=== PATIENT | female | born 1965 | race Caucasian/White ===

== ENCOUNTER → 2018-11-16 | Outpatient (CLI) | payer BC ==
[2018-11-16 15:30] VITALS: BP 166/92; PULSE 77; TEMP 97.3; BMI 33.2
--- NOTE | 2018-11-16 17:04 | P.HPOB ---
History of Present Illness H&P Date: 11/16/18 Chief Complaint: The patient is here for her routine gynecologic exam and mammogram. This is a 52-year-old with an LMP of 2014. The patient is here to establish with this office. She is status post total laparoscopic hysterectomy with the right salpingo-oophorectomy in 2014 and this was benign. Her last pelvic exam was about 3 years ago. The patient is without gynecologic complaints. She has been using black cohosh and progesterone cream which are [id number] preparations. She uses these for hot flashes which started in 2015. She states these were recommended by her chiropractor. Review of Systems She has gained about 9 pounds over the last year. She denies respiratory or cardiac problems. G.I.: long-standing constipation which she has dealt with for many years. Past Medical History Past Medical History: No Reported History Additional Past Medical History / Comment(s): CHRONIC CONSTIPATION. 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 [facility] RSO for benign R ovarian mass. History of Any Multi-Drug Resistant Organisms: None Reported Past Surgical History: Breast Surgery (Right biopsy), Hysterectomy ([facility] RSO 2014 ), Tonsillectomy Additional Past Surgical History / Comment(s): Colonoscopy 2015. Past Anesthesia/Blood Transfusion Reactions: No Reported Reaction Past Psychological History: No Psychological Hx Reported Smoking Status: Never smoker Past Alcohol Use History: None Reported Additional Past Alcohol Use History / Comment(s): Previously socially drink alcohol, but quit when her ex- was an alcoholic. Past Drug Use History: None Reported Additional History: She was in 1991. She has been with her boyfriend since 2005, but does not live with him. 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 - Past Family History Mother History Unknown: Yes Family Medical History: AFIB Additional Family Medical History / Comment(s): PT ADOPTED therefore limited family history is known. Maternal grandfather had colon polyps. Medications and Allergies Home Medications Medication Instructions Recorded Confirmed Type Black Cohosh* 40 mg PO DAILY 04/10/15 11/16/18 History Cascara Sajrada 1 tab PO DAILY 04/10/15 11/16/18 History Digest Pill Complete Enzyme Formula 1 tab PO TID-W/MEALS 04/10/15 11/16/18 History Ferrous Sulfate [Feosol] 65 mg PO DAILY 04/10/15 11/16/18 History Flaxseed* 1 tsp PO DAILY 04/10/15 11/16/18 History L.acidoph,Paracasei, B.lactis 1 each PO DAILY 04/10/15 11/16/18 History [Probiotic] Multivitamins, Thera [Multivitamin] 1 each PO DAILY 04/10/15 11/16/18 History Zinc* 150 mg PO DAILY 04/10/15 11/16/18 History Cholecalciferol [Vitamin D3] 5,000 unit PO DAILY 11/16/18 11/16/18 History Elderberry Fruit and Flower [Black 1 each PO DAILY 11/16/18 11/16/18 History Elderberry 575 mg Cap] Progesterone, Micronized [Crinone] 1.125 gm VG DAILY 11/16/18 11/16/18 History Ubidecarenone [Co Q-10] 200 mg PO 11/16/18 History Allergies Allergy/AdvReac Type Severity Reaction Status Date / Time No Known Allergies Allergy Verified 11/16/18 14:42 Exam Vital Signs Temp Pulse BP 11/16/18 15:26 97.3 F L 77 166/92 Intake and Output 11/16/18 11/16/18 11/16/18 06:59 14:59 22:59 Other: Weight 93.44 kg Repeat blood pressure 142/80. Height 5'6", weight 206 pounds, BMI 33.2. This is a well-developed well-nourished white female who is alert and oriented times 3 in no acute distress. HEENT: Within normal limits. NECK: Supple without mass or thyromegaly. CHEST AND LUNGS: Clear to auscultation. HEART: Regular rate and rhythm. BREASTS: Are without mass or discharge. AXILLARY EXAM: Negative for adenopathy. BACK: Negative for CVA tenderness. ABDOMEN: Soft, nontender, without palpable masses. PELVIC EXAM: External genitalia appears normal with minimal atrophy. Vagina appears normal with minimal atrophy. There is no evidence of prolapse. Bimanual examination is negative for mass or tenderness. RECTAL EXAM: Rectovaginal exam is negative for mass or tenderness and is negative for occult blood. EXTREMITIES: Nontender. IMPRESSION: 1. 52 year old postmenopausal female status post TLH and RSO for benign reasons , with normal gynecologic exam. 2. The patient uses [id number] black cohosh and progesterone cream for menopausal vasomotor symptoms. 3. Elevated blood pressure. PLAN: 1. Pap smears have been discontinued. 2. Self breast awareness was discussed with the patient. 3. Screening mammogram will be done today. 4. We have discussed her elevated blood pressure. Have recommended that she check her blood pressure on her own on a regular basis. She will follow-up with Dr. Rodríguez for blood pressure elevations. 5. Osteoporosis prevention was discussed. I have stressed the importance of adequate calcium, vitamin D and regular exercise. Recommended amounts of calcium and vitamin D were also discussed. 6. I have recommended that she try to wean off of progesterone cream and black cohosh for potential risks with supplements and hormones. 7. She will return in one year
--- NOTE | 2018-11-20 10:12 | MM ---
Reason for exam: screening (asymptomatic). Last mammogram was performed 3 years and 5 months ago. History: Patient is postmenopausal. Excisional biopsy of the left breast. MG 3D Screening Mammo W/Cad Bilateral CC and MLO view(s) were taken. Prior study comparison: June 08, 2015, bilateral screening mammo w CAD. April 03, 2008, bilateral [place] screening mammogram, performed at [facility]. There are scattered fibroglandular densities. Chronic nodularity left breast. There is lymphadenopathy on the left. No significant changes when compared with prior studies. ASSESSMENT: Benign, BI-RAD 2 RECOMMENDATION: Routine screening mammogram of both breasts in 1 year.
== END | disposition home or self-care (01) ==
LOC: WWCWWP 14:10
PROVIDERS: ATTEND Obstetrics & Gynecology
DX: Z12.31 Encounter for screening mammogram for malignant neoplasm of breast (principal)
CPT/HCPCS: 77063; 77067

== ENCOUNTER 2018-12-01 23:13 | Emergency (ER) | payer BC ==
[2018-12-01 23:25] VITALS: PULSE 86; RESP 20; TEMP 97.9
[2018-12-01] MEDS ORDERED: amLODIPine 5 MG TAB PO STA (23:39)
--- NOTE | 2018-12-01 23:42 | ED ---
General Adult HPI - General Chief complaint: Recheck/Abnormal Lab/Rx Stated complaint: High blood pressure Time Seen by Provider: 12/01/18 23:26 Source: patient, family Mode of arrival: ambulatory Limitations: no limitations - History of Present Illness Initial comments: This is a 52-year-old female with no past medical history who presents for department for high blood pressure. 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 She states that she made an appointment with her primary doctor that she has on Thursday of this week which is in 2 days. She has been checking her blood pressure at home and noted that her blood pressure was elevated at 190/ 110. She called her daughter who is a nurse who advised her to come emergency department. She states that she does have a little bit of some head pressure and some flushing in her neck and face however denies any focal neurologic deficits. She states that she does not have any chest pain or shortness of breath. She has been urinating normally. She denies any other acute complaints. - Related Data Home Medications Medication Instructions Recorded Confirmed Black Cohosh* 40 mg PO DAILY 04/10/15 11/16/18 Cascara Sajrada 1 tab PO DAILY 04/10/15 11/16/18 Digest Pill Complete Enzyme Formula 1 tab PO TID-W/MEALS 04/10/15 11/16/18 Ferrous Sulfate [Feosol] 65 mg PO DAILY 04/10/15 11/16/18 Flaxseed* 1 tsp PO DAILY 04/10/15 11/16/18 L.acidoph,Paracasei, B.lactis 1 each PO DAILY 04/10/15 11/16/18 [Probiotic] Multivitamins, Thera [Multivitamin] 1 each PO DAILY 04/10/15 11/16/18 Zinc* 150 mg PO DAILY 04/10/15 11/16/18 Cholecalciferol [Vitamin D3] 5,000 unit PO DAILY 11/16/18 11/16/18 Elderberry Fruit and Flower [Black 1 each PO DAILY 11/16/18 11/16/18 Elderberry 575 mg Cap] Progesterone, Micronized [Crinone] 1.125 gm VG DAILY 11/16/18 11/16/18 Ubidecarenone [Co Q-10] 200 mg PO 11/16/18 Previous Rx's Medication Instructions Recorded amLODIPine [Norvasc] 5 mg PO DAILY #7 tab 12/02/18 Allergies Allergy/AdvReac Type Severity Reaction Status Date / Time No Known Allergies Allergy Verified 12/01/18 23:25 Review of Systems ROS Statement: Those systems with pertinent positive or pertinent negative responses have been documented in the HPI. ROS Other: All systems not noted in ROS Statement are negative. Past Medical History Past Medical History: Hypertension Additional Past Medical History / Comment(s): CHRONIC CONSTIPATION. 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 [facility] RSO for benign R ovarian mass. History of Any Multi-Drug Resistant Organisms: None Reported Past Surgical History: Breast Surgery, Hysterectomy, Tonsillectomy Additional Past Surgical History / Comment(s): Colonoscopy 2014. Past Anesthesia/Blood Transfusion Reactions: No Reported Reaction Past Psychological History: No Psychological Hx Reported Smoking Status: Never smoker Past Alcohol Use History: None Reported Past Drug Use History: None Reported - Past Family History Mother History Unknown: Yes Family Medical History: AFIB Additional Family Medical History / Comment(s): PT ADOPTED therefore limited family history is known. Maternal grandfather had colon polyps. General Exam - General Exam Comments Initial Comments: Constitutional: Awake alert Appears comfortable Head: Normocephalic atraumatic Eyes: no conjunctival injection No scleral icterus EOMI pupils are 4 mm and reactive bilaterally Neck: No JVD Supple Heart: Regular rate rhythm normal S1-S2 no murmurs Lungs: Clear to auscultation bilaterally No wheezing No rales Abdomen: Soft nondistended nontender Extremities: Non edematous DP pulses intact Radial pulses intact Neuro: A&Ox3, cranial nerves II through XII are grossly intact, 5 out of 5 strength in upper and lower extremities bilaterally, patient had normal gait without ataxia No focal neurologic deficits Psych: Appropriate mood and affect Limitations: no limitations Course Vital Signs 12/01/18 23:19 Temperature 97.9 F Pulse Rate 86 Respiratory 20 Rate Blood Pressure 178/117 O2 Sat by Pulse 98 Oximetry EKG Findings - EKG Comments: EKG Findings:: EKG showing normal sinus rhythm with a rate of 73. There is no abnormal ST segment changes or T-wave inversions. QTC is 456. Other intervals are normal. No ectopy. Medical Decision Making - Medical Decision Making This is a 52-year-old female who presents emergency department for right blood pressure. Patient had no focal neurologic deficits. No chest pain. EKG was normal. Urinalysis and it not show any evidence for proteinuria. The patient was given a Norvasc. Blood pressure was improved. She was given a week's worth of Norvasc and she will follow-up with her primary doctor in 2 days. Told to return if she developed any chest pain, severe headache, focal neurologic deficits, or any other concerning symptoms all questions answered. - Lab Data Lab Results 12/01/18 Range/Units 23:40 Urine Color Colorless Urine Appearance Clear (Clear) Urine pH 6.5 (5.0-8.0) Ur Specific [place] 1.001 (1.001-1.035) Urine Protein Negative (Negative) Urine Glucose (UA) Negative (Negative) Urine Ketones Negative (Negative) Urine Blood Negative (Negative) Urine Nitrite Negative (Negative) Urine Bilirubin Negative (Negative) Urine Urobilinogen <2.0 (<2.0) mg/dL Ur Leukocyte Esterase Small H (Negative) Urine RBC <1 (0-5) /hpf Urine WBC 8 H (0-5) /hpf Ur Squamous Epith Cells 1 (0-4) /hpf Disposition Clinical Impression: Hypertension Disposition: HOME SELF-CARE Condition: Stable Instructions (If sedation given, give patient instructions): Hypertension (ED) Additional Instructions: See your primary doctor in 2 days. Prescriptions: amLODIPine [Norvasc] 5 mg PO DAILY #7 tab Is patient prescribed a controlled substance at d/c from ED?: No Referrals: Juan Jose Rodríguez DO [Primary Care Provider] - 1-2 days
[2018-12-02 00:02] LABS: Appearance,Urine Clear (Clear); Bilirubin,Urine Negative (Negative); Blood,Urine Negative (Negative); Color,Urine Colorless; Glucose,Urine (UA) Negative (Negative); Ketones,Urine Negative (Negative); Leukocyte Esterase,Urine Small (Negative); Nitrite,Urine Negative (Negative); PH, Urine 6.5 (5.0-8.0); Protein,Urine Negative (Negative); RBC,Urine <1 /hpf (0-5); Specific Gravity,Urine 1.001 (1.001-1.035); Squamous Epithelial Cell,Urine 1 /hpf (0-4); Urobilinogen,Urine <2.0 mg/dL (<2.0); WBC,Urine 8 /hpf (0-5)
[2018-12-02 00:40] VITALS: BP 156/100
== END 2018-12-02 00:39 | disposition home or self-care (01) ==
LOC: EC 23:13
DX: I10 Essential (primary) hypertension (principal)
CPT/HCPCS: 81001; 93005; 99283

== ENCOUNTER → 2023-03-13 | Outpatient (CLI) | payer BC ==
--- NOTE | 2023-03-16 17:30 | MM ---
Reason for Exam: Screening (asymptomatic). Last mammogram was performed 4 year(s) and 4 month(s) ago. Patient History: Menarche at age 10. First Full-Term at age 19. Right ovary removed at age 49. Hysterectomy at age 49. Postmenopausal. Patient has history of breast feeding. Excisional Biopsy on the Left side. Risk Values: [place] 5 year model risk: 1.6%. NCI Lifetime model risk: 8.9%. Prior Study Comparison: 04/03/2008 Bilateral Screening Mammogram, [place]. 06/08/2015 Bilateral Screening Mammogram, [facility]. 11/16/2018 Bilateral Screening Mammogram, [facility]. Tissue Density: There are scattered fibroglandular densities. Findings: Analyzed By CAD. Pattern appears symmetrical and stable. Chronic nodularity is the outer aspect left breast. No suspicious groups of microcalcifications, spiculated or lobular masses, architectural distortion or other secondary signs of malignancy are mammographically apparent. Overall Assessment: Benign, BI-RAD 2 Management: Screening Mammogram of both breasts in 1 year. A negative mammogram report should not preclude additional follow up of suspicious palpable abnormalities. Patient should continue monthly self breast exam. A clinical breast exam by your physician is recommended on an annual basis and results should be correlated with mammographic findings. Electronically signed and approved by: Jay Townsend D.O. Radiologis
== END | disposition home or self-care (01) ==
LOC: RADMAMWWP 14:32
PROVIDERS: ATTEND Family Medicine
DX: Z12.31 Encounter for screening mammogram for malignant neoplasm of breast (principal); Z78.0 Asymptomatic menopausal state
CPT/HCPCS: 77067

== ENCOUNTER → 2023-04-22 | Outpatient (CLI) | payer BC ==
[2023-04-22 09:28] VITALS: BP 133/84; PULSE 76; RESP 16; TEMP 98.3
--- NOTE | 2023-04-22 10:09 | P.HPOB ---
History of Present Illness H&P Date: 04/22/23 Chief Complaint: The patient is here for her routine gynecologic exam. This is a 57-year-old 011 with an LMP of 2014. She is status post [facility] with RSO for benign reasons. She is without gynecologic complaints. She did have her mammogram done on 03/13/2023 and it was benign. Review of Systems She is getting about 9 pounds over the past 4 years. She denies respiratory, cardiac, or GI problems. 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 [facility] RSO for benign R ovarian mass. History of Any Multi-Drug Resistant Organisms: None Reported Past Surgical History: Breast Surgery, Hysterectomy, Tonsillectomy Additional Past Surgical History / Comment(s): Colonoscopy 2014(next after 10yr). Past Anesthesia/Blood Transfusion Reactions: No Reported Reaction Past Psychological History: No Psychological Hx Reported Smoking Status: Never smoker Past Alcohol Use History: None Reported Additional Past Alcohol Use History / Comment(s): Previously socially drink alcohol, but quit when her ex- was an alcoholic. Past Drug Use History: None Reported Additional History: She has been since 2020 and this is her second marriage. She has worked at several jobs. - Past Family History Mother History Unknown: Yes Family Medical History: AFIB Additional Family Medical History / Comment(s): PT ADOPTED therefore limited family history is known. Maternal grandfather had colon polyps. Medications and Allergies Home Medications Medication Instructions Recorded Confirmed Type Flaxseed* 1 tsp PO DAILY 04/10/15 04/22/23 History L.acidoph,Paracasei, B.lactis 1 each PO DAILY 04/10/15 04/22/23 History [Probiotic] Zinc* 150 mg PO DAILY 04/10/15 04/22/23 History Cholecalciferol [Vitamin D3] 5,000 unit PO DAILY 11/16/18 04/22/23 History Ubidecarenone [Co Q-10] 200 mg PO DAILY 11/16/18 04/22/23 History amLODIPine [Norvasc] 5 mg PO DAILY #7 tab 12/02/18 04/22/23 Rx Ascorbic Acid [Vitamin C] 1 tab PO DAILY 04/22/23 04/22/23 History Garlic 1 cap PO DAILY 04/22/23 04/22/23 History Ginkgo Biloba [place] Extract [Ginkgo 1 cap PO DAILY 04/22/23 04/22/23 History Biloba] Magnesium Citrate 1 cap PO DAILY 04/22/23 04/22/23 History Allergies Allergy/AdvReac Type Severity Reaction Status Date / Time No Known Allergies Allergy Verified 04/22/23 09:19 Exam Vital Signs Temp Pulse Resp BP Pulse Ox 04/22/23 09:25 98.3 F 76 16 133/84 97 Intake and Output 04/21/23 04/22/23 04/22/23 22:59 06:59 14:59 Other: Weight 97.522 kg Height 5 feet 6 inches, weight 215 pounds, BMI 34.7. This is a well-developed well-nourished white female who is alert and oriented times 3 in no acute distress. HEENT: Within normal limits. NECK: Supple without mass or thyromegaly. CHEST AND LUNGS: Clear to auscultation. HEART: Regular rate and rhythm. BREASTS: Are without mass or discharge. AXILLARY EXAM: Negative for adenopathy. BACK: Negative for CVA tenderness. ABDOMEN: Soft, nontender, without palpable masses. PELVIC EXAM: External genitalia appears normal with mild atrophy. Vagina appears normal minimal atrophy. There is no evidence of prolapse. Bimanual examination is negative for mass or tenderness. RECTAL EXAM: Rectovaginal exam is negative for mass or tenderness and is negative for occult blood. EXTREMITIES: Nontender. IMPRESSION: 1. 57-year-old menopausal female status post H RSO for benign reasons, with normal gynecologic exam. PLAN: 1. Pap smears have been discontinued. 2. Self breast awareness was discussed with the patient. We have also discussed symptoms associated with inflammatory breast cancer. 3. Screening mammogram was done last month and was benign. She will repeat this after one year. 4. Osteoporosis prevention was discussed. I have stressed the importance of adequate calcium, vitamin D and regular exercise. Recommended amounts of calcium and vitamin D were also discussed. We will plan on doing bone density testing at age 59. 5. She was advised to return in one year for her annual well woman exam.
== END ==
LOC: WWCWWP 09:07
PROVIDERS: ATTEND Obstetrics & Gynecology
DX: N95.1 Menopausal and female climacteric states (principal); Z90.710 Acquired absence of both cervix and uterus; I10 Essential (primary) hypertension